=== PATIENT | female | born 1950 | race African-American/Black ===

== ENCOUNTER 2020-12-09 12:01 | Outpatient (CLI) | payer OTHER | END 2020-12-09 12:05 | disposition home or self-care (01) | LOC: PPH VACUNA 12:01 | PROVIDERS: ATTEND Emergency Medicine Pediatric Emergency Medicine | DX: Z23 Encounter for immunization (principal) ==

== ENCOUNTER 2022-10-04 12:40 | Outpatient (CLI) | payer OTHER | END 2022-10-04 12:49 | disposition home or self-care (01) | LOC: RAD 12:40 | PROVIDERS: ATTEND Orthopaedic Surgery | DX: M25.562 Pain in left knee (principal) ==

== ENCOUNTER → 2022-11-08 08:38 | Outpatient (CLI) | payer OTHER ==
[~2022-11-08 08:38] MED LIST: ADULT LOW DOSE81 M1 PO; CRESTOR10 MG PO; MAXIMUM D3325 MCG PO; TOPROL XL50 M1 PO
== END | disposition home or self-care (01) ==
LOC: LAB 08:38
PROVIDERS: ATTEND Orthopaedic Surgery
DX: D64.89 Other specified anemias (principal); E88.89 Other specified metabolic disorders; D68.8 Other specified coagulation defects; N39.0 Urinary tract infection, site not specified; A49.02 Methicillin resistant Staphylococcus aureus infection, unspecified site; Z76.89 Persons encountering health services in other specified circumstances; I49.9 Cardiac arrhythmia, unspecified; I10 Essential (primary) hypertension

== ENCOUNTER 2022-11-13 05:57 | Day surgery (SDC) | payer OTHER | END 2022-11-13 15:55 | disposition home or self-care (01) | LOC: CIR.AMB 05:57 | PROVIDERS: ATTEND Orthopaedic Surgery | DX: S83.232A Complex tear of medial meniscus, current injury, left knee, initial encounter (principal); M65.862 Other synovitis and tenosynovitis, left lower leg; Z20.822 Contact with and (suspected) exposure to COVID-19 ==

== ENCOUNTER 2023-03-29 10:51 | Outpatient (CLI) | payer OTHER | END 2023-03-29 10:58 | disposition home or self-care (01) | LOC: RAD 10:51 | PROVIDERS: ATTEND Orthopaedic Surgery | DX: M25.561 Pain in right knee (principal); M23.91 Unspecified internal derangement of right knee ==